=== PATIENT | female | born 1950 | race Caucasian/White ===

== ENCOUNTER 2019-01-16 08:24 | Day surgery (SDC) | payer MEDICARE, OTHER ==
[~2019-01-16] VITALS: Ht 157.5 cm; Wt 69.1 kg
[~2019-01-16 08:24] MED LIST: AMPDEX5 PO; ATOR80 PO; BUSP10 PO; CELE100 PO; CYCL10 PO; Clonazepam0.125 MG PO; GABA600 PO; HYDACE10B PO; LEVSOD100 PO; LORATADINE10 MG PO; LOSARTAN POTAS100 MG PO; METO50 PO; MONT10T PO; Norvasc10 MG PO; VENL150ER PO
--- NOTE | 2019-01-16 09:18 | NUR ---
01/16/19 0918 Domo Pza BLOCK PLACED IN RIGHT HAND. PT TOW.
== END 2019-01-16 11:20 | disposition home or self-care (01) ==
LOC: ORSCSDS 08:24
PROVIDERS: Orthopaedic Surgery
PROC: 01N50ZZ Release Median Nerve, Open Approach (ICD-10-PCS; principal; 2019-01-16 09:45)
DX: G56.01 Carpal tunnel syndrome, right upper limb (principal); M12.9 Arthropathy, unspecified; I10 Essential (primary) hypertension; F17.210 Nicotine dependence, cigarettes, uncomplicated; Z79.899 Other long term (current) drug therapy
CPT/HCPCS: J0690; J2250; J2704; J3010; J7120

== ENCOUNTER → 2019-01-31 | Outpatient (CLI) | payer MEDICARE, OTHER ==
[2019-01-31 16:09] LABS: Campylobacter Sp Not Detected (NOT DETECT)
[2019-01-31 16:10] LABS: Adenovirus F 40/41 Not Detected (NOT DETECT); Astrovirus Not Detected (NOT DETECT); Cryptosporidium Not Detected (NOT DETECT); Cyclospora Cayetanensis Not Detected (NOT DETECT); E. Coli O157 Not Detected (NOT DETECT); Entamoeba Histolytica Not Detected (NOT DETECT); Enteroaggregative E. coli-EAEC Not Detected (NOT DETECT); Enteropathogenic E. coli-EPEC Not Detected (NOT DETECT); Enterotoxigenic E. coli-ETEC Not Detected (NOT DETECT); Giardia Lamblia Not Detected (NOT DETECT); Norovirus GI/GII Not Detected (NOT DETECT); Plesiomonas Shigelloides Not Detected (NOT DETECT); Rotavirus A Not Detected (NOT DETECT); Salmonella Sp Not Detected (NOT DETECT); Sapovirus Not Detected (NOT DETECT); Shiga Toxin-prod E. coli-STEC Not Detected (NOT DETECT); Shigella/Enteroin E. coli-EIEC Not Detected (NOT DETECT); Vibrio Cholerae Not Detected (NOT DETECT); Vibrio Sp Not Detected (NOT DETECT); Yersinia Enterocolitica Not Detected (NOT DETECT)
== END | disposition home or self-care (01) ==
LOC: OLS 08:05 → LAB SHORT 08:05 → LAB FUT 01-30 15:40
DX: R19.7 Diarrhea, unspecified (principal)
CPT/HCPCS: 0097U

== ENCOUNTER 2019-05-21 08:58 | Day surgery (SDC) | payer MEDICARE, OTHER ==
[~2019-05-21] VITALS: Ht 157.5 cm; Wt 70.4 kg
[2019-05-21] MEDS ORDERED: MELATONIN5 M1 (10:05)
--- NOTE | 2019-05-21 10:21 | NUR ---
Ambulatory in Day Surgery. Patient states colon prep results clear. History, Chart, Medications and Allergies reviewed before start of procedure.Lungs clear T/O to Auscultation. Patient confirms NPO status and agrees with scheduled surgery. Pre-Op teaching done. Pt verbalizes understanding. Patient States Post-Procedure ride home has been arranged.
--- NOTE | 2019-05-21 10:24 | NUR ---
05/21/19 Randell Walker History, Chart, Medications and Allergies reviewed before start of procedure.MONITOR INTACT WITH CONTINUOUS PULSE OXIMETRY AND INTERMITTENT BP.3-LEAD EKG REVIEWED WITH PHYSICIAN PRIOR TO START OF PROCEDURE.O2 VIA N/C INTACT THROUGHOUT SEDATION/PROCEDURE. PATIENT DETERMINED TO BE ASA APPROPRIATE FOR PROPOFOL SEDATION PRIOR TO START OF PROCEDURE BY DR. SIMMONS.
== END 2019-05-21 11:29 | disposition home or self-care (01) ==
LOC: ORSCMMR 08:58 → ORD 10:00 → ORSCMMR 10:00
PROVIDERS: Internal Medicine Gastroenterology
PROC: 0DBK8ZX Excision of Ascending Colon, Via Natural or Artificial Opening Endoscopic, Diagnostic (ICD-10-PCS; principal; 2019-05-21 10:00)
PROC: 0DBB8ZX Excision of Ileum, Via Natural or Artificial Opening Endoscopic, Diagnostic (ICD-10-PCS; principal; 2019-05-21 10:00)
DX: R19.4 Change in bowel habit (principal); K52.832 Lymphocytic colitis; E78.00 Pure hypercholesterolemia, unspecified; F32.9 Major depressive disorder, single episode, unspecified; J44.9 Chronic obstructive pulmonary disease, unspecified; I10 Essential (primary) hypertension; E03.9 Hypothyroidism, unspecified; F17.210 Nicotine dependence, cigarettes, uncomplicated; Z79.899 Other long term (current) drug therapy
CPT/HCPCS: 88305; J2704; J7120

== ENCOUNTER 2020-06-30 09:04 | Day surgery (SDC) | payer MEDICARE, OTHER ==
[~2020-06-30] VITALS: Ht 157.5 cm; Wt 79.5 kg
[~2020-06-30 09:04] MED LIST changes: +CITA20 PO; +FAMO20 PO; +MELATONIN5 M1
--- NOTE | 2020-06-30 10:05 | NUR ---
Ambulatory in Day Surgery. Patient states colon prep results clear. History, Chart, Medications and Allergies reviewed before start of procedure.Lungs clear T/O to Auscultation. Patient confirms NPO status and agrees with scheduled surgery. Patient States Post-Procedure ride home has been arranged.
--- NOTE | 2020-06-30 10:19 | NUR ---
06/30/20 1018 Mabel Chatman History, Chart, Medications and Allergies reviewed before start of procedure.PATIENT DETERMINED TO BE ASA APPROPRIATE FOR PROPOFOL SEDATION PRIOR TO START OF PROCEDURE BY .MONITOR INTACT WITH CONTINUOUS PULSE OXIMETRY AND INTERMITTENT BP.3-LEAD EKG REVIEWED WITH PHYSICIAN PRIOR TO START OF PROCEDURE.O2 VIA POM INTACT THROUGHOUT SEDATION/PROCEDURE.
--- NOTE | 2020-06-30 10:51 | NUR ---
Patient up to Ambulate independently. Gait steady. Discharge instructions reviewed with patient. Patient verbalizes understanding. Copy given to patient to take home. Discharged via wheelchair to private car for ride home WITH FRIEND.
== END 2020-06-30 10:52 | disposition home or self-care (01) ==
LOC: ORSCMMR 09:04 → ORD 10:00 → ORSCMMR 10:52
PROVIDERS: Internal Medicine Gastroenterology
PROC: 0DB68ZX Excision of Stomach, Via Natural or Artificial Opening Endoscopic, Diagnostic (ICD-10-PCS; principal; 2020-06-30 10:00)
PROC: 0DB48ZX Excision of Esophagogastric Junction, Via Natural or Artificial Opening Endoscopic, Diagnostic (ICD-10-PCS; principal; 2020-06-30 10:00)
PROC: 0DB58ZX Excision of Esophagus, Via Natural or Artificial Opening Endoscopic, Diagnostic (ICD-10-PCS; principal; 2020-06-30 10:00)
PROC: 0D758ZZ Dilation of Esophagus, Via Natural or Artificial Opening Endoscopic (ICD-10-PCS; principal; 2020-06-30 10:00)
DX: R13.10 Dysphagia, unspecified (principal); K21.9 Gastro-esophageal reflux disease without esophagitis; R19.7 Diarrhea, unspecified; Z87.19 Personal history of other diseases of the digestive system; I10 Essential (primary) hypertension; J44.9 Chronic obstructive pulmonary disease, unspecified; E78.00 Pure hypercholesterolemia, unspecified; F17.210 Nicotine dependence, cigarettes, uncomplicated; F32.9 Major depressive disorder, single episode, unspecified; Z79.899 Other long term (current) drug therapy
CPT/HCPCS: 88305; 88312; 88342; A9270; C1726; J2704; J7120

== ENCOUNTER 2021-09-19 09:35 | Day surgery (SDC) | payer MEDICARE, OTHER ==
[~2021-09-19] VITALS: Ht 157.5 cm; Wt 83.1 kg
[~2021-09-19 09:35] MED LIST changes: +ATOR40TA PO; +Celexa20 MG PO; +DICLOFENAC SOD2.5 M1 BOTHEYES; +ESTRADIOL PO; +HYDCHL25 PO; -MELATONIN5 M1; +MELATONIN5 M1 PO; +PEPCID20 MG PO; +Trazodone HCl300 MG PO
--- NOTE | 2021-09-19 19:45 | NUR ---
SHIFT SUMMARY PT A&OX4, VSS/RA, KAMAR PO, VOIDING WELL, PAIN MANAGED WITH OXY 5 MG AND TORADOL, PHYSICAL THERAPY EVAL'D, AMB W/FWW & GB TO BRP, UP TO CHAIR FOR DINNER. S/P LTKA, AQUACEL/SHAWNA WRAP CDI, TEDS/PAS/POLAR MATTHEW ON. REPORT PROVIDED TO ARTHUR GILL.
[2021-09-20 04:40] LABS: BASOPHILS ABSOLUTE AUTO 0.03 K/mm3 (0.00-0.23); BASOPHILS PERCENT AUTO 0 % (0-2); EOSINOPHILS PERCENT AUTO 0 % (0-6); Hematocrit 34.8 % (33.0-51.0); Hemoglobin 11.6 g/dL (11.5-16.0); IMMATURE GRAN ABSOLUTE AUTO 0.15 K/mm3 (0.00-0.10); IMMATURE GRAN PERCENT AUTO 1 % (0-1); LYMPHOCYTES ABSOLUTE AUTO 1.21 K/mm3 (0.84-5.20); LYMPHOCYTES PERCENT AUTO 6 % (21-46); MONOCYTES ABSOLUTE AUTO 1.11 K/mm3 (0.16-1.47); MONOCYTES PERCENT AUTO 6 % (4-13); Mean Corpuscular HGB 32.1 pg (26.0-34.0); Mean Corpuscular HGB Conc 33.3 g/dL (31.5-36.5); Mean Corpuscular Volume 96 fL (80-100); Mean Platelet Volume 11.7 fL (9.1-12.4); NEUTROPHILS ABSOLUTE AUTO 17.84 K/mm3 (1.96-9.15); NEUTROPHILS PERCENT AUTO 88 % (41-73); Platelet Count 307 K/mm3 (150-400); RDW Standard Deviation 50.1 fL (35.1-46.3); Red Blood Cell Count 3.61 M/mm3 (3.80-5.20); White Blood Cell Count 20.34 K/mm3 (4.00-11.30)
[2021-09-20 05:05] LABS: Bun/Creatinine Ratio 16.9 (12.0-20.0); Calcium, Blood 8.7 mg/dL (8.5-10.1); Creatinine, Blood 1.18 mg/dL (0.40-1.00)
--- NOTE | 2021-09-20 06:23 | NUR ---
SUMMARY NO ISSUES NOTED. PT PAIN HAS BEEN MINIMIAL. PT HAS BEEN ABLE TO SLEEP THIS SHIFT. PT CURRENTLY SLEEPING IN NO DISTRESS. CALL LIGHT IN REACH.
[2021-09-20] MEDS ORDERED: Percocet 5-3251 EACH PO (09:35)
[2021-09-20] MEDS ORDERED: ELIQUIS2.5 M1 PO (09:35)
--- NOTE | 2021-09-20 10:54 | NUR ---
DISCHARGE NOTE: PATIENT WAS EDUCATED ON DISCHARGE INSTRUCTIONS. SHE VERBALIZED UNDERSTANDING OF INSTRUCTIONS. HARD PERSCRIPTIONS WERE PLACED IN INSTRUCTIONS FOLDER. IV WAS TAKEN OUT AND WNL. LEFT KNEE WAS SHAWNA WRAPPED AND C/D/I. DENIED NUMBNESS OR TINGLING. CAN MOVE FINGERS AND TOES. SHE IS A SBA WITH FWW AND GAIT BELT. PAIN IS MANAGED WITH PO TYLENOL AND GLADIS. SHE IS TOLERATING PO INTAKE AND IS VOIDING. PATIENT IS DRESSED AND HAS ITEMS IN THE ROOM GATHERED. PATIENT IS BEING WHEELCHAIRED OUT TO HER FRIENDS CAR TO BE TAKEN HOME.
== END 2021-09-20 10:40 | disposition home or self-care (01) ==
LOC: ORSCMMR 09:35 → ORD 11:00 → ORSCMMR 11:00 → ORD 12:00 → SURS 14:33 → ORSCMMR 09-20 10:40
PROVIDERS: Orthopaedic Surgery
PROC: 0SRD0JA Replacement of Left Knee Joint with Synthetic Substitute, Uncemented, Open Approach (ICD-10-PCS; principal; 2021-09-19 12:30)
PROC: 8E0Y0CZ Robotic Assisted Procedure of Lower Extremity, Open Approach (ICD-10-PCS; principal; 2021-09-19 12:30)
DX: M17.12 Unilateral primary osteoarthritis, left knee (principal); Z96.651 Presence of right artificial knee joint; Z87.891 Personal history of nicotine dependence; E78.5 Hyperlipidemia, unspecified; I10 Essential (primary) hypertension; E03.9 Hypothyroidism, unspecified; K21.9 Gastro-esophageal reflux disease without esophagitis; Z79.899 Other long term (current) drug therapy; F41.8 Other specified anxiety disorders
CPT/HCPCS: 27447; S2900; 36415; 73560-LT; 80048; 85025; 97110; 97116; 97162; A9270; C1776; J0171; J0690; J0735; J1100; J1885; J2250; J2370; J2405; J2704; J2795; J3010; J7120

== ENCOUNTER → 2024-02-11 | Outpatient (CLI) | payer MEDICARE, OTHER ==
[~2024-02-11] MED LIST changes: +ELIQUIS2.5 M1 PO; +Percocet 5-3251 EACH PO
[2024-02-11 14:05] LABS: Albumin, Blood 3.8 g/dL (3.4-5.0); Bilirubin, Total 0.5 mg/dL (0.1-1.0); Calcium, Blood 9.2 mg/dL (8.5-10.1); Creatinine, Blood 1.07 mg/dL (0.40-1.00); Globulin, Blood 3.7 g/dL (2.2-4.0); Total Protein, Blood 7.5 g/dL (6.4-8.2)
== END | disposition home or self-care (01) ==
LOC: LAB 13:23 → LAB SHORT 13:23
PROVIDERS: Internal Medicine Hematology & Oncology
DX: C34.90 Malignant neoplasm of unspecified part of unspecified bronchus or lung (principal)
CPT/HCPCS: 80053